=== PATIENT | male | born 1965 | race Hispanic/Latino ===

== ENCOUNTER 2017-03-09 22:11 | Emergency (ER) | payer SELFPAY ==
[~2017-03-09] VITALS: Ht 172.7 cm; Wt 60.6 kg
[2017-03-09 23:09] LABS: HEMATOCRIT 21.7 % (38.0-50.0); MCHC 33.2 G/DL (30.0-36.0); MCV 90.4 FL (86-99); MEAN PLAT.VOLUME 8.3 uM^3 (9.0-12.4); PLATELET COUNT 276 K/uL (156-360); RBC DIS.WIDTH-CV 15.2 % (11.8-14.6); RBC DIS.WIDTH-SD 50.7 % (39-53); WHITE BLOOD COUNT 8.2 K/uL (4.1-10.2)
[2017-03-09 23:22] LABS: CHLORIDE 107 mEq/L (99-109); POTASSIUM 5.2 mEq/L (3.7-5.4); SODIUM 134 mEq/L (136-147)
[2017-03-09 23:26] LABS: ANION GAP 10 MEQ/L (2-14); GLUCOSE 118 mg/dL (70-99)
[2017-03-09 23:27] LABS: TOTAL BILIRUBIN 0.2 mg/dL (0.0-1.0)
[2017-03-09 23:28] LABS: ALKALINE PHOSPHATASE 204 IU/L (3-129); GFR ESTIMATE (CALCULATED) 20 mL/min/
[2017-03-09 23:29] LABS: UREA NITROGEN (BUN) 99 mg/dL (9-23)
[2017-03-09 23:32] LABS: LIPASE 89 U/L (1.0-51.0)
[2017-03-09 23:45] LABS: TROP-I INTERPRETATION NEGATIVE; TROPONIN-I 0.05 ng/mL (0.0-0.30)
[2017-03-10] MEDS ORDERED: PROTONIX40 MG PO (00:25)
[2017-03-10] MEDS ORDERED: NORVASC10 MG PO (00:26)
[2017-03-10] MEDS ORDERED: FUROSEMIDE20 MG PO (00:26)
[2017-03-10] MEDS ORDERED: HYDRALAZINE HCL50 MG PO (00:26)
[2017-03-10] MEDS ORDERED: TAMSULOSIN HCL0.4 MG PO (00:27)
[2017-03-10] MEDS ORDERED: NABI650T PO (00:27)
[2017-03-10] MEDS ORDERED: CARVEDILOL12.5 MG PO (00:27)
[2017-03-10] MEDS ORDERED: FOLIC ACID0.4 MG PO (00:28)
[2017-03-10] MEDS ORDERED: MAALOX ADVANCE355 ML PO (00:29)
[2017-03-10] MEDS ORDERED: ONE-A-DAY ESSE1 EAC1 PO (00:29)
[2017-03-10] MEDS ORDERED: ATORVASTATIN CA10 MG PO (00:29)
[2017-03-10] MEDS ORDERED: DULCOLAX10 MG PR (00:30)
[2017-03-10] MEDS ORDERED: PHILLIPS'400 MG/5 M PO (00:30)
[2017-03-10] MEDS ORDERED: FLEET ENEMA-AD118 ML PR (00:31)
[2017-03-10] MEDS ORDERED: AUGMENTIN875 MG PO (02:06)
[2017-03-10 02:12] VITALS: BP 194/85
[2017-03-10 02:33] VITALS: BP 175/115
[2017-03-10 03:30] VITALS: BP 174/86
[2017-03-10 04:26] VITALS: BP 185/77
[2017-03-10 04:29] VITALS: BP 185/77
== END 2017-03-10 05:13 ==
LOC: EME 22:11 → EDBD 22:11 → EME 03-10 05:13
PROVIDERS: Emergency Medicine
DX: R04.0 Epistaxis (principal); D64.9 Anemia, unspecified; N28.9 Disorder of kidney and ureter, unspecified; F03.90 Unspecified dementia, unspecified severity, without behavioral disturbance, psychotic disturbance, mood disturbance, and anxiety; I10 Essential (primary) hypertension; Z87.891 Personal history of nicotine dependence
CPT/HCPCS: 80053; 82140; 83690; 84484; 85027; 86900; 86901; 86920; 99281; 99285; J7030; P9016